=== PATIENT | female | born 1960 | race Caucasian/White ===

== ENCOUNTER 2020-07-28 18:41 | Emergency (ER) | payer SELFPAY ==
[~2020-07-28] VITALS: Ht 170.2 cm; Wt 164.8 kg
[~2020-07-28 18:41] MED LIST: ASPIRIN EC81 MG PO; FLEXERIL PO; HYDROCHLOROT25 MG PO; IBUPROFEN600 MG PO; LORTAB 1010 MG PO; METOPROL TAR25 MG PO; OXYCODONE10 M1 PO; OXYCONTIN10 MG PO; OXYCONTIN40 MG PO; VASOTEC10 MG PO
[2020-07-28 20:19] LABS: HEMATOCRIT 45.8 % (37.0-47.0); HEMOGLOBIN 14.7 g/dl (12.0-16.0); IMMATURE GRANULOCYTES 0.4 % (0.0-5.0); MEAN CELL VOLUME 86.6 fL CALC (80.0-100.0); MEAN CORPUSCULAR HGB 27.8 pG CALC (26.0-32.0); MEAN CORPUSCULAR HGB CONC 32.1 g/dL CAL (32.0-36.0); NEUT# 6.48 thou/uL (2.00-7.15); RED BLOOD COUNT 5.29 mill/uL (4.20-5.60); RED CELL DISTRI WIDTH 14.5 % (11.5-15.5)
[2020-07-28 20:37] LABS: ALKALINE PHOSPHATASE 73 u/l (38-126); ANION GAP 10 (6-22 (CALC)); BILIRUBIN, TOTAL 0.6 mg/dL (0.0-1.4); BUN 12 mg/dL (7-17); BUN/CREATININE RATIO 16 (12-20 (CALC)); CARBON DIOXIDE 28 mmol/l (22-30); CHLORIDE 101 mmol/l (95-108); CREATININE 0.8 mg/dL (0.5-1.0); GFR > 60 ML/MIN (>=60 (CALC)); GFR FOR AFR.AMER. > 60 ML/MIN (>=60 (CALC)); POTASSIUM 3.9 mmol/l (3.5-5.1); SGOT/AST 28 u/l (14-36); SODIUM 135 mmol/l (137-146); TOTAL PROTEIN 7.4 g/dL (6.3-8.2)
[2020-07-28 20:49] LABS: MYOGLOBIN 37 ng/mL (0 - 62)
[2020-07-28 21:27] VITALS: BP 140/78
== END 2020-07-28 21:37 | disposition home or self-care (01) | DRG 556 ==
LOC: ED 18:41
PROVIDERS: Emergency Medicine
DX: M79.89 Other specified soft tissue disorders (principal); I10 Essential (primary) hypertension